=== PATIENT | female | born 1980 | race Caucasian/White ===

== ENCOUNTER → 2019-07-30 09:24 | Outpatient (BNVA) | payer BC, SELFPAY | PROVIDERS: Family Provider Nurse Practitioner Family; Visit Provider Nurse Practitioner Family | DX: J44.1 Chronic obstructive pulmonary disease with (acute) exacerbation (principal); J84.10 Pulmonary fibrosis, unspecified | CPT/HCPCS: 71046 ==

== ENCOUNTER 2019-07-30 11:12 | Observation (INO) | payer BC, SELFPAY ==
[2019-07-30] VITALS (12 sets, daily range): BP systolic 116–171; BP diastolic 65–84; PULSE 94–120; RESP 18–28; TEMP 36.5–37.2; O2SAT 92–99
--- NOTE | 2019-07-30 11:21 | ED_ITS ---
Entered by Francia Huynh, acting as scribe for Claudia Webster MD, [facility] [place] - SOB/Dyspnea General: Chief Complaint: Shortness of Breath/Dyspnea Stated Complaint: SOB Time Seen by Provider: 07/30/19 11:14 Source: patient and family Mode of arrival: EMS Limitations: no limitations History of Present Illness: HPI Narrative: 38 yo Female presents to ED with complaint of shortness of breath. Pt states that she has a history of asthma and COPD. Pt states that she is a 1 pack per day smoker. Pt states that her difficulty breathing started yesterday but worsened today. Pt was at the doctor's office and given a shot of solumedrol. Per EMS, patient was given 2 breathing treatments prior to her arrival to the ED. MD elicited complaint: shortness of breath Pertinent past history: COPD and asthma Onset (ago): day(s) Timing: progressively worsening Exacerbating factors: exertion, movement and coughing Relieving factors: oxygen and bronchodilators Known history of: COPD and asthma Associated symptoms: Reports chest congestion and cough; Deny abdominal pain, chest pain, fever(s), nausea, palpitations, polydipsia, polyuria or vomiting Treatment prior to arrival: oxygen and bronchodilator Related Data: Home oxygen amount: none Review of Systems General: Reports: 10 or more systems reviewed and unremarkable except in HPI and below Const: Denies: fever, chills or body aches Eyes: Denies: change in vision or blurry vision ENMT: Denies: throat pain, enlarged tonsils, painful swallowing, hoarseness, mouth pain or swelling of lips/tongue Card: Denies: chest pain, palpitations, irregular heart rhythm, edema or swelling of feet/ankles Resp: Reports: shortness of breath, productive cough, wheezing and chest congestion GI: Denies: abdominal pain, nausea or vomiting : Denies: flank pain, difficulty urinating, painful urination, urinary frequency, urinary urgency or urinary hesitancy Musc: Denies: neck pain, back pain or extremity swelling Skin/Breast: Denies: rash, itching or redness Neuro: Denies: headache, numbness in extremities or weakness in extremities Endo: Denies: excessive urination, excessive thirst or tired all the time [facility] ED PFSH: Medical History (Updated 07/30/19 @ 19:01 by Claudia Webster MD, [facility] [place]) Asthma COPD with exacerbation Patient has history of COPD and had intermittent exacerbations. She has seen a outsole caser in [place] and was recently referred to [facility] [place] Pulmonology and evaluate by Dr. Crandall. Patient is using daily inhalers. Patient continues to smoke. Surgical History (Updated 07/30/19 @ 16:20 by Alyssa Urbina DO) History of 2 sections History of breast biopsy History of cholecystectomy History of hemorrhoidectomy History of hysterectomy History of tubal ligation Family History (Updated 07/30/19 @ 16:20 by Alyssa Urbina DO) Father Dementia Social History Smoking and tobacco status: current every day smoker Second hand smoke exposure: No Smoking risk assessment/counseling performed?: No Alcohol intake: never Desire information about alcohol rehabilitation?: No Counseling given: No Desire information about substance/drug rehabilitation?: No Counseling given: No Physical Exam Const: COMMON NORMALS: no apparent distress, average body habitus, oriented x3, no limitations, healthy appearing, alert and well nourished HENMT: COMMON NORMALS: normocephalic, head/scalp atraumatic and moist oral mucous membranes HEAD & SCALP: normocephalic and atraumatic Eye: COMMON NORMALS: PERRL, EOMs intact bilaterally, conjunctivae normal and no scleral icterus CONJUNCTIVA: Yes conjunctivae normal PUPIL: Yes PERRL Neck/C-Spine: COMMON NORMALS: full ROM, supple, no meningeal signs, no JVD and no carotid bruits Chest: COMMONS NORMALS: inspection of chest normal and palpation of chest normal Resp: COMMON NORMALS: no retractions and percussion normal EFFORT & INSPECTION: Yes tachypneic, Yes respiratory distress, Yes pursed lip breathing and Yes uses accessory muscles AUSCULTATION: wheezes expiratory wheezes, inspiratory wheezes and throughout and diminished lung sounds PERCUSSION: percussion normal Cardio: COMMON NORMALS: no JVD, regular rate, regular rhythm, S1 normal heart sound, S2 normal heart sound, no gallops, no clicks, no murmurs, no rub and peripheral pulses 2+ throughout RATE: regular rate RHYTHM: regular rhythm HEART SOUNDS: S1 normal and S2 normal PERIPHERAL PULSES: pulses 2+ throughout GI: COMMON NORMALS: normal to inspection, nondistended, normoactive bowel sounds, soft to palpation, non-tender, no hepatosplenomegaly, no masses and no bruits PALPATION: Yes soft and Yes no hepatosplenomegaly : COMMON NORMALS: Yes no CVA tenderness BLADDER/KIDNEY EXAM: Yes no CVA tenderness Back/Pelvis: COMMON NORMALS: no CVA tenderness Extremity: COMMON NORMALS: normal to inspection, full ROM, normal capillary refill, no calf tenderness and no pedal edema Neuro: COMMON NORMALS: oriented x3 SENSORIUM/ORIENTATION: Yes alert MENINGEAL SIGNS: Yes no meningeal signs Skin: COMMON NORMALS: no rashes or lesions noted, no wounds, skin turgor normal, no jaundice, no petechiae and no mottling GENERAL SKIN EXAM: no rashes or lesions noted and turgor normal Course Reevaluation(s): Reevaluation #1: Patient feels much improved following the 10 mg albuterol nebulizer treatment. On examination she is still wheezing throughout however there is much improved air movement. Her lungs are still tight. Discussed treatment options with her including admitting which is my recommendation, versus outpatient care. Patient opted to be admitted to the hospital. Time: 12:00 Consultations: Consultation #1: Dr. Urbina, hospitalist. She kindly accepted the patient to her service. Vital Signs: Vital signs: Vital Signs Temperature 97.8 F 07/30/19 15:20 Pulse Rate 104 H 07/30/19 15:21 Respiratory Rate 20 H 07/30/19 15:21 Blood Pressure 122/68 07/30/19 15:20 Pulse Oximetry 95 07/30/19 15:21 MDM - SOB/Dyspnea MDM Narrative: Medical decision making narrative: Patient who presented to the emergency department in respiratory distress from a COPD exacerbation. She had received 125 mg of Solu-Medrol, 16 mg of dexamethasone, 2 albuterol breathing treatments, and 1 DuoNeb treatment prior to arrival in the emergency department. In the emergency department she received 10 mg of nebulized albuterol following which obtain much improvement. She was still however with significant distress. She is therefore admitted to the hospital for pulmonary toilet and further work-up. Lab Data: Labs: Lab Results 07/30/19 07/30/19 07/30/19 Range/Units 11:35 11:35 11:35 WBC 18.0 H (4.0-10.0) 10^3/ uL RBC 5.12 (4.1-5.3) 10^6/u L Hgb 15.3 (11.5-15.3) g/dL Hct 45.9 (37.0-47.0) % MCV 89.6 (81-99) fL MCH 29.9 (28.0-34.0) pg MCHC 33.3 (30.0-36.0) g/dL RDW 12.7 (12.1-15.1) % Plt Count 258 (130-400) 10^3/c mm MPV 10.6 H (7.4-10.4) fL Neut % (Auto) 78.8 % Lymph % (Auto) 14.0 % Mora % (Auto) 5.7 % Eos % (Auto) 0.6 % Baso % (Auto) 0.3 % Neut # (Auto) 14.2 H (1.8-7.7) 10^3/u L Lymph # (Auto) 2.5 (0.8-4.8) 10^3/u L Mora # (Auto) 1.0 H (0.2-0.9) 10^3/u L Eos # (Auto) 0.1 (0.0-0.8) 10^3/u L Baso # (Auto) 0.1 (0.0-0.1) 10^3/u L Nucleated RBC % (a uto) 0 % Nucleated RBCs # 0.0 /100WBC D-Dimer 0.44 (0-0.59) ug/mIFE U Specimen Type Sample Site ABG pH (7.35-7.45) ABG pCO2 (35-45) mmHg ABG pO2 (80.0-100.0) mmH g ABG HCO3 (22-26) mmol/L ABG Base Excess (-2.0-2.0) mmol/ L Tristen Test Hematocrit (37-47) % O2 Delivery Device O2 Liters/Min % FiO2 % Product Safety And Standards Engineer ID Sodium 139 (136-145) mmol/L Potassium 3.8 (3.5-5.1) mmol/L Chloride 101 (98-107) mmol/L Carbon Dioxide 23 (22-29) mmol/L Anion Gap 18.8 (5-19) BUN 9 (6-20) mg/dL Creatinine 0.8 (0.5-0.9) mg/dL GFR Calculation 79.9 L (90-130) mL/min Glucose 122 H (65-115) mg/dL Lactate (0.5-2.2) mmol/L Calcium 9.4 (8.5-10.5) mg/dL Total Bilirubin 0.4 (0.15-1.2) mg/dL AST 30 (0-32) U/L ALT 31 (0-33) U/L Alkaline Phosphata se 88 (35-105) IU/L C-Reactive Protein 15.3 H (0.0-4.9) mg/L Total Protein 7.8 (6.6-8.7) g/dL Albumin 4.3 (3.5-5.2) g/dL Globulin 3.5 (1.3-4.6) g/dL Influenza Type A A g (Negative) POC Influenza B Ag (Negative) 07/30/19 07/30/19 07/30/19 Range/Units 11:35 11:41 11:51 WBC (4.0-10.0) 10^3/ uL RBC (4.1-5.3) 10^6/u L Hgb (11.5-15.3) g/dL Hct (37.0-47.0) % MCV (81-99) fL MCH (28.0-34.0) pg MCHC (30.0-36.0) g/dL RDW (12.1-15.1) % Plt Count (130-400) 10^3/c mm MPV (7.4-10.4) fL Neut % (Auto) % Lymph % (Auto) % Mora % (Auto) % Eos % (Auto) % Baso % (Auto) % Neut # (Auto) (1.8-7.7) 10^3/u L Lymph # (Auto) (0.8-4.8) 10^3/u L Mora # (Auto) (0.2-0.9) 10^3/u L Eos # (Auto) (0.0-0.8) 10^3/u L Baso # (Auto) (0.0-0.1) 10^3/u L Nucleated RBC % (a uto) % Nucleated RBCs # /100WBC D-Dimer (0-0.59) ug/mIFE U Specimen Type Arterial Sample Site Brachial, left ABG pH 7.47 H (7.35-7.45) ABG pCO2 25.3 L (35-45) mmHg ABG pO2 86.8 (80.0-100.0) mmH g ABG HCO3 18.5 L (22-26) mmol/L ABG Base Excess -3.2 L (-2.0-2.0) mmol/ L Tristen Test Pos Hematocrit 48.6 H (37-47) % O2 Delivery Device Nc O2 Liters/Min 2.0 % FiO2 28.0 % Product Safety And Standards Engineer ID cak Sodium (136-145) mmol/L Potassium (3.5-5.1) mmol/L Chloride (98-107) mmol/L Carbon Dioxide (22-29) mmol/L Anion Gap (5-19) BUN (6-20) mg/dL Creatinine (0.5-0.9) mg/dL GFR Calculation (90-130) mL/min Glucose (65-115) mg/dL Lactate 4.5 H* (0.5-2.2) mmol/L Calcium (8.5-10.5) mg/dL Total Bilirubin (0.15-1.2) mg/dL AST (0-32) U/L ALT (0-33) U/L Alkaline Phosphata se (35-105) IU/L C-Reactive Protein (0.0-4.9) mg/L Total Protein (6.6-8.7) g/dL Albumin (3.5-5.2) g/dL Globulin (1.3-4.6) g/dL Influenza Type A A g Negative (Negative) POC Influenza B Ag Negative (Negative) Imaging Data^: CXR: Radiologist's impression: [address] [address] XRay Report Signed Patient: Dalila Long #: [id number] : 1980Acct#:[id number] Age/Sex: 38 / FADM Date: 07/30/19 Loc: WINRoom/Bed: Attending Dr: D J Gross CANCER PROGRAM DIRECTOR Ordering Provider/Ordering MD: Pipo Donato NP Date of Service: 07/30/19 Procedure(s): XR chest 2V* 23457 Accession Number(s): [id number] Report Number: [id number] WS: [id number] XR chest 2V* 92030 REASON FOR EXAM: shortness of breath FINDINGS: Calcified granulomas are noted in the right hilum and right lower lung. The lung bentley are well aerated. No pneumonia, pleural effusion, pulmonary edema, or mass effect. The hilum and apices are normal. No osseous abnormalities. XR/XR chest 2V* 02378 IMPRESSION: Negative chest for active pathology. Calcified granulomas right hilum right lower lung all benign in appearance. Dictated By:Ran Mlies DO Signed By:Ran Miles DOSigned Date/Time:07/30/19939 DD/ 8 Discharge Plan Discharge Patient Disposition: Placed in Observation Admit Provider: Alyssa Urbina Clinical Impression: COPD with exacerbation, Respiratory distress Interventions: ED Discharge Assessment Last Done: 07/30/19 13:35 Discharge Date/Time: 07/30/19 13:47 Coding Level of Care Code ED Neon Sign Erector for Chg Fwd Exam Comprehensive The documentation recorded by the Lino franklin Carmen, accurately reflects the service I personally performed and the decisions made by Eleanor murray Adegoke I, MD, [facility] [place] Jul 30, 2019 11:12
[2019-07-30 11:43] LABS: Basophils # 0.1 10^3/uL (0.0-0.1); Basophils % 0.3 %; Eosinophils # 0.1 10^3/uL (0.0-0.8); Eosinophils % 0.6 %; Hematocrit 45.9 % (37.0-47.0); Hemoglobin 15.3 g/dL (11.5-15.3); Lymphocytes # 2.5 10^3/uL (0.8-4.8); Mean Corpuscular HGB Conc 33.3 g/dL (30.0-36.0); Mean Corpuscular Hemoglobin 29.9 pg (28.0-34.0); Mean Corpuscular Volume 89.6 fL (81-99); Mean Platelet Volume 10.6 fL (7.4-10.4); Monocytes % 5.7 %; Neutrophils # 14.2 10^3/uL (1.8-7.7); Neutrophils % 78.8 %; Nucleated Red Blood Cells % 0 %; Platelet Count 258 10^3/cmm (130-400); Red Blood Count 5.12 10^6/uL (4.1-5.3); Red Cell Distribution Width 12.7 % (12.1-15.1)
[2019-07-30 11:59] LABS: Alanine Aminotransferase 31 U/L (0-33); Albumin Level 4.3 g/dL (3.5-5.2); Alkaline Phosphatase 88 IU/L (35-105); Anion Gap 18.8 (5-19); Aspartate Amino Transferase 30 U/L (0-32); Blood Urea Nitrogen 9 mg/dL (6-20); C Reactive Protein 15.3 mg/L (0.0-4.9); Calcium 9.4 mg/dL (8.5-10.5); Carbon Dioxide 23 mmol/L (22-29); Chloride 101 mmol/L (98-107); Globulin 3.5 g/dL (1.3-4.6); Glomerular Filtration Rate 79.9 mL/min (90-130); Glucose 122 mg/dL (65-115); Potassium 3.8 mmol/L (3.5-5.1); Sodium 139 mmol/L (136-145); Total Bilirubin 0.4 mg/dL (0.15-1.2); Total Protein 7.8 g/dL (6.6-8.7)
[2019-07-30] MEDS: sodium chloride 0.9% 1,000 ML 999 ML IV (12:00)
[2019-07-30 12:02] LABS: ABG PCO2 25.3 mmHg (35-45); ABG PH Result 7.47 (7.35-7.45); Arterial Blood Gas Hematocrit 48.6 % (37-47); Base Excess ABG -3.2 mmol/L (-2.0-2.0); Blood Gas Allen Test Pos; Blood Gas Sample Site Brachial, left; Blood Gas Sample Type Arterial; HCO3 ABG 18.5 mmol/L (22-26); Oxygen Device NC; PO2 ABG 86.8 mmHg (80.0-100.0)
[2019-07-30 12:05] LABS: Lactate (Lactic Acid level) 4.5 mmol/L (0.5-2.2)
[2019-07-30 12:06] LABS: D Dimer 0.44 ug/mIFEU (0-0.59)
--- NOTE | 2019-07-30 12:07 | PC.NURSE ---
Lactate 4.5
[2019-07-30 12:17] LABS: Influenza A by IFA Negative (Negative); Influenza B by IFA Negative (Negative)
[2019-07-30] MEDS: levofloxacin-dextrose 5 % 750 MG/150 ML PREMIX 150 MG IV (12:28)
[2019-07-30] MEDS: enoxaparin 40 mg/0.4 mL Syringe SUBCUT (14:18)
[2019-07-30] MEDS: ipratropium-albuterol 3 mL Neb INHALATION ×3 (15:15→23:50)
--- NOTE | 2019-07-30 16:18 | PM.HP ---
Providers/Chief Complaint Admitting Physician: Alyssa Urbina DO Chief Complaint: SOB History of Present Illness Dalila Long is a 38 year old female that presented to the emergency department today for shortness of breath. She stated that this morning she began having sudden onset of increased cough and shortness of breath. She stated that she has asthma and COPD and continues to smoke has had this frequent times in the past. She stated that she used her home albuterol and then used her home trilogy inhaler but continued to have worsening symptoms therefore went to the clinic. In the clinic she is reported she cannot remember much but she remembers being sent to the ER for further evaluation due to the severity of her symptoms. She was seen and evaluated in the emergency department noted to have concern for COPD and asthma exacerbation and admitted for further evaluation and treatment. At time of my exam patient reports that she is feeling somewhat better from admission she denies any chest pain, no nausea or vomiting or abdominal pain Review of Systems Const: Denies: fever or chills Eyes: Denies: change in vision ENMT: Denies: nasal congestion Card: Denies: chest pain, palpitations or edema Resp: Reports: shortness of breath; Denies: productive cough or coughing up blood GI: Denies: abdominal pain, nausea, vomiting, diarrhea, constipation, blood in stool or black tarry stool : Denies: painful urination or blood in urine Musc: Denies: extremity pain or muscle cramps Skin/Breast: Denies: rash or new lesion Neuro: Denies: headache or dizziness Psych: Denies: anxiety or depression Endo: Denies: excessive urination or hot flashes Kenneth/Lymph: Denies: easy bruising or easy bleeding Medications/Allergies Home Medications Medication Instructions Recorded Confirmed Last Taken Type sclscsnfgqt-uezbdycap-hrmrzjhr 1 inh INHALATION DAILY 07/30/19 07/30/19 07/30/19 History [Trelegy Ellipta] ibuprofen 800 mg PO Q6H PRN 07/30/19 07/30/19 07/26/19 History prednisone 40 mg PO BID PRN 07/30/19 07/30/19 Unknown History Allergies Allergy/AdvReac Type Severity Reaction Status Date / Time No Known Allergies Allergy Verified 07/30/19 09:14 PFSH Acute PFSH: Medical History (Updated 07/30/19 @ 16:22 by Alyssa Urbina DO) Asthma COPD with exacerbation Patient has history of COPD and had intermittent exacerbations. She has seen a security delivery specialist in [place] and was recently referred to [facility] [place] Pulmonology and evaluate by Dr. Crandall. Patient is using daily inhalers. Patient continues to smoke. Surgical History (Updated 07/30/19 @ 16:20 by Alyssa Urbina DO) History of 2 sections History of breast biopsy History of cholecystectomy History of hemorrhoidectomy History of hysterectomy History of tubal ligation Family History (Updated 07/30/19 @ 16:20 by Alyssa Urbina DO) Father Dementia Social History Smoking and tobacco status: current every day smoker Second hand smoke exposure: No Smoking risk assessment/counseling performed?: No Alcohol intake: never Desire information about alcohol rehabilitation?: No Counseling given: No Desire information about substance/drug rehabilitation?: No Counseling given: No Vitals/I&O/Wt Last Vital Signs Temp 97.8 F 07/30/19 15:20 Pulse 104 H 07/30/19 15:21 Resp 20 H 07/30/19 15:21 BP 122/68 07/30/19 15:20 Pulse Ox 95 07/30/19 15:21 Weight last 48 hrs Weight 9.979 kg Physical Exam Const: COMMON NORMALS: oriented x3 and alert GENERAL APPEARANCE: cooperative ORIENTATION/CONSCIOUSNESS: Yes awake, Yes oriented to person, Yes oriented to place and Yes oriented to time HENMT: COMMON NORMALS: normocephalic and head/scalp atraumatic HEAD & SCALP: normocephalic and atraumatic Eye: COMMON NORMALS: PERRL PUPIL: Yes PERRL Neck/C-Spine: COMMON NORMALS: supple GENERAL: Yes normal visual inspection Resp: AUSCULTATION: no rhonchi and wheezes OTHER: Diffuse wheezing bilaterally Cardio: COMMON NORMALS: regular rhythm and no murmurs RATE: regular rate and tachycardic RHYTHM: regular rhythm GI: COMMON NORMALS: soft to palpation and non-tender INSPECTION: No abdominal distension AUSCULTATION: Yes normoactive bowel sounds PALPATION: Yes soft Extremity: COMMON NORMALS: no clubbing, cyanosis or edema and no calf tenderness Neuro: COMMON NORMALS: oriented x3, CN's II-XII intact bilaterally, moves all extremities and no focal motor deficits SENSORIUM/ORIENTATION: Yes alert, Yes oriented to person, Yes oriented to place and Yes oriented to time SPEECH: speech normal Psych: COMMON NORMALS: mental status grossly normal and cooperative Data : 07/30/19 11:35 07/30/19 11:35 Micro: Microbiology 07/30/19 11:35 Blood Culture - Preliminary Blood SPECIMEN COLLECTED 07/30/19 11:28 Blood Culture - Preliminary Blood SPECIMEN COLLECTED CXR: Radiologist's impression: IMPRESSION: Negative chest for active pathology. Calcified granulomas right hilum right lower lung all benign in appearance. A&P Assessment and plan (1) COPD with exacerbation: COPD with acute exacerbation Respiratory therapy to assess and treat Oxygen per protocol We will continue with prednisone and Levaquin Status: Acute Code(s): J44.1 - Chronic obstructive pulmonary disease with (acute) exacerbation (2) Asthma: Plan as above Status: Acute Code(s): J45.909 - Unspecified asthma, uncomplicated Additional A&P Information Tobacco abuse: Strongly encourage cessation Attestations Medical Necessity Statement*: Observation due to concern for COPD exacerbation, expected stay less than 2 midnights Coding Level of Care Code Acute Starch Dumper for Otto Quiroga Diagnoses COPD with exacerbation J44.1 Asthma J45.909
[2019-07-30] MEDS: doxycycline 100 mg Tablet PO (17:20)
[2019-07-30] MEDS: ALPRAZolam 0.25 mg Tablet PO (21:11)
[2019-07-31] VITALS (10 sets, daily range): BP systolic 127–156; BP diastolic 59–85; PULSE 81–114; RESP 18–26; TEMP 36.6–36.7; O2SAT 96–98
[2019-07-31] MEDS: acetaminophen 325 mg Tablet 650 MG PO (00:11)
--- NOTE | 2019-07-31 00:12 | PC.PHAR ---
Levaquin dosage is adjusted from 750mg P.O. daily to 500mg P.O. every 48 hours after initial 750mg dose due to creatinine clearance of 14.87.
[2019-07-31] MEDS: ipratropium-albuterol 3 mL Neb INHALATION ×3 (03:52→08:02)
--- NOTE | 2019-07-31 04:15 | PC.NURSE ---
AMA Request Pt was requesting to leave AMA, this nurse spoke with Dr. Napier and pt's elizabet. Pt's fiance concerned about how far she lived out of town and if she had another episode she would be without oxygen for a while. This nurse spoke with pt again and told her fiance's concerns and informed her of the risks of leaving AMA. Pt decided she would stay for the night and requested for something to help her sleep.
[2019-07-31 06:13] LABS: Basophils % 0.1 %; Hematocrit 43.3 % (37.0-47.0); Hemoglobin 14.1 g/dL (11.5-15.3); Lymphocytes # 1.7 10^3/uL (0.8-4.8); Lymphocytes % 10.8 %; Mean Corpuscular HGB Conc 32.6 g/dL (30.0-36.0); Mean Corpuscular Hemoglobin 30.4 pg (28.0-34.0); Mean Corpuscular Volume 93.3 fL (81-99); Mean Platelet Volume 10.7 fL (7.4-10.4); Monocytes # 1.3 10^3/uL (0.2-0.9); Monocytes % 8.4 %; Neutrophils # 12.7 10^3/uL (1.8-7.7); Neutrophils % 80.3 %; Nucleated Red Blood Cells % 0 %; Platelet Count 198 10^3/cmm (130-400); Red Blood Count 4.64 10^6/uL (4.1-5.3); White Blood Count 15.9 10^3/uL (4.0-10.0)
[2019-07-31 06:34] LABS: Blood Urea Nitrogen 10 mg/dL (6-20); Calcium 9.4 mg/dL (8.5-10.5); Carbon Dioxide 21 mmol/L (22-29); Chloride 104 mmol/L (98-107); Creatinine Clr Calc Pharmacy 152.2311; Glomerular Filtration Rate 111.3 mL/min (90-130); Glucose 190 mg/dL (65-115); Osmolality Calculated 289 mOsm/kg (285-295); Sodium 139 mmol/L (136-145)
--- NOTE | 2019-07-31 08:48 | P.DS_ITS ---
Discharge Providers Date of Admission: 07/30/19 12:50 Date of Discharge: July 31, 2019 Attending Provider at Admission: Alyssa Urbina DO Attending Provider at Discharge: Alyssa Urbina DO Primary Care Provider: RUBIO donato Diagnoses at Discharge Discharge Diagnosis (1) COPD with exacerbation: Status: Acute Problem details: Patient has history of COPD and had intermittent exacerbations. She has seen a warehouse hand in [place] and was recently referred to [facility] [place] Pulmonology and evaluate by Dr. Crandall. Patient is using daily inhalers. Patient continues to smoke. Discharge to home with Levaquin and prednisone Patient has plenty of nebulizer solution at home, denies needing a refill Discussed with patient greater than 5 minutes on tobacco cessation and encouraged tobacco cessation, prescription for nicotine patch provided recommended follow-up with primary care provider in 3 to 5 days and follow-up with in 3 to 4 months (2) Asthma: Status: Acute Problem details: Plan as above Reason for Visit Reason for Visit: Reason For Visit: SOB Hospital Course Hospital Course: Patient was seen and evaluated in the emergency department noted to have concern for acute COPD and asthma exacerbation and admitted for further evaluation and treatment. She was given prednisone and Levaquin and she continued to improve. On date of discharge she was awake in bed denied any chest pain, stated that her breathing was feeling much better today. Discussed with patient the need for tobacco cessation and she verbalized understanding. She reported that she felt ready to discharge to home, discussed the need close follow-up with primary care provider and with warehouse hand. Patient verbalized understanding and agreed with plan. Discharge Summary: Discharge to home with self-care Follow-up with primary care provider in 3 to 5 days Follow-up with Dr. Crandall, warehouse hand in 3 to 4 months Physical Exam Const: COMMON NORMALS: oriented x3 and alert GENERAL APPEARANCE: cooperative ORIENTATION/CONSCIOUSNESS: Yes awake, Yes oriented to person, Yes oriented to place and Yes oriented to time HENMT: COMMON NORMALS: normocephalic and head/scalp atraumatic HEAD & SCALP: normocephalic and atraumatic Eye: COMMON NORMALS: PERRL PUPIL: Yes PERRL Neck/C-Spine: COMMON NORMALS: supple GENERAL: Yes normal visual inspection Resp: AUSCULTATION: no rhonchi and wheezes OTHER: End expiratory wheezing bilaterally Cardio: COMMON NORMALS: regular rhythm and no murmurs RATE: tachycardic RHYTHM: regular rhythm GI: COMMON NORMALS: soft to palpation and non-tender INSPECTION: No abdominal distension AUSCULTATION: Yes normoactive bowel sounds PALPATION: Yes soft Extremity: COMMON NORMALS: no clubbing, cyanosis or edema and no calf tenderness Neuro: COMMON NORMALS: oriented x3, CN's II-XII intact bilaterally, moves all extremities and no focal motor deficits SENSORIUM/ORIENTATION: Yes alert, Yes oriented to person, Yes oriented to place and Yes oriented to time SPEECH: speech normal Psych: COMMON NORMALS: mental status grossly normal and cooperative Discharge Data Data Completed and Pending: Pending at discharge Category Date Time Status Blood Culture Sta t Lab 07/30/19 11:35 Results Labs from last 24 hours 07/31/19 07/31/19 07/30/19 06:02 06:02 11:51 WBC 15.9 H RBC 4.64 Hgb 14.1 Hct 43.3 MCV 93.3 MCH 30.4 MCHC 32.6 RDW 13.0 Plt Count 198 MPV 10.7 H Neut % (Auto) 80.3 Lymph % (Auto) 10.8 Webster % (Auto) 8.4 Eos % (Auto) 0.0 Baso % (Auto) 0.1 Neut # (Auto) 12.7 H Lymph # (Auto) 1.7 Webster # (Auto) 1.3 H Eos # (Auto) 0.0 Baso # (Auto) 0.0 Nucleated RBC % (a uto) 0 Nucleated RBCs # 0.0 D-Dimer Specimen Type Arterial Sample Site Brachial, left ABG pH 7.47 H ABG pCO2 25.3 L ABG pO2 86.8 ABG HCO3 18.5 L ABG Base Excess -3.2 L Tristen Test Pos Hematocrit 48.6 H O2 Delivery Device Nc O2 Liters/Min 2.0 FiO2 28.0 Filler Block Inserter Remover ID cak Sodium 139 Potassium 4.0 Chloride 104 Carbon Dioxide 21 L Anion Gap 18.0 BUN 10 Creatinine 0.6 GFR Calculation 111.3 Glucose 190 H Calculated Osmolal ity 289 Lactate Calcium 9.4 Total Bilirubin AST ALT Alkaline Phosphata se C-Reactive Protein Total Protein Albumin Globulin Influenza Type A A g POC Influenza B Ag 07/30/19 07/30/19 07/30/19 11:41 11:35 11:35 WBC RBC Hgb Hct MCV MCH MCHC RDW Plt Count MPV Neut % (Auto) Lymph % (Auto) Webster % (Auto) Eos % (Auto) Baso % (Auto) Neut # (Auto) Lymph # (Auto) Webster # (Auto) Eos # (Auto) Baso # (Auto) Nucleated RBC % (a uto) Nucleated RBCs # D-Dimer 0.44 Specimen Type Sample Site ABG pH ABG pCO2 ABG pO2 ABG HCO3 ABG Base Excess Tristen Test Hematocrit O2 Delivery Device O2 Liters/Min FiO2 Filler Block Inserter Remover ID Sodium Potassium Chloride Carbon Dioxide Anion Gap BUN Creatinine GFR Calculation Glucose Calculated Osmolal ity Lactate 4.5 H* Calcium Total Bilirubin AST ALT Alkaline Phosphata se C-Reactive Protein Total Protein Albumin Globulin Influenza Type A A g Negative POC Influenza B Ag Negative 07/30/19 07/30/19 11:35 11:35 WBC 18.0 H RBC 5.12 Hgb 15.3 Hct 45.9 MCV 89.6 MCH 29.9 MCHC 33.3 RDW 12.7 Plt Count 258 MPV 10.6 H Neut % (Auto) 78.8 Lymph % (Auto) 14.0 Webster % (Auto) 5.7 Eos % (Auto) 0.6 Baso % (Auto) 0.3 Neut # (Auto) 14.2 H Lymph # (Auto) 2.5 Webster # (Auto) 1.0 H Eos # (Auto) 0.1 Baso # (Auto) 0.1 Nucleated RBC % (a uto) 0 Nucleated RBCs # 0.0 D-Dimer Specimen Type Sample Site ABG pH ABG pCO2 ABG pO2 ABG HCO3 ABG Base Excess Tristen Test Hematocrit O2 Delivery Device O2 Liters/Min FiO2 Filler Block Inserter Remover ID Sodium 139 Potassium 3.8 Chloride 101 Carbon Dioxide 23 Anion Gap 18.8 BUN 9 Creatinine 0.8 GFR Calculation 79.9 L Glucose 122 H Calculated Osmolal ity Lactate Calcium 9.4 Total Bilirubin 0.4 AST 30 ALT 31 Alkaline Phosphata se 88 C-Reactive Protein 15.3 H Total Protein 7.8 Albumin 4.3 Globulin 3.5 Influenza Type A A g POC Influenza B Ag Vitals: Last Vital Signs Temp 97.8 F 07/31/19 07:37 Pulse 105 H 07/31/19 08:08 Resp 18 07/31/19 08:02 BP 147/65 07/31/19 07:37 Pulse Ox 98 07/31/19 08:02 Discharge Plan Discharge Patient Disposition: Home, Self-Care Condition: Stable Prescriptions: New nicotine 21 mg/24 hr Patch 24 Hour 1 patch transdermal DAILY 7 Days Qty: 7 RF: 0 prednisone 20 mg tablet 40 mg PO DAILY 5 Days Qty: 10 RF: 0 levofloxacin [Levaquin] 750 mg tablet 750 mg PO DAILY 10 Days RF: 0 Continued ipratropium-albuterol 0.5 mg-3 mg(2.5 mg base)/3 mL solution for nebulization 3 ml inhalation QID RF: 0 albuterol sulfate 90 mcg/actuation HFA aerosol inhaler 2 puff INHALATION Q8H PRN (Reason: Shortness Of Breath) RF: 0 ibuprofen 800 mg Tablet 800 mg PO Q6H PRN (Reason: Pain) RF: 0 Trelegy Ellipta 100-62.5-25 mcg Blister With Device 1 inh INHALATION DAILY RF: 0 Discontinued prednisone 20 mg tablet 40 mg PO BID PRN (Reason: UNKNOWN) RF: 0 Discharge Orders: Discharge Order (Routine); Ordered 07/31/19 Ordered By: Alyssa Urbina Referrals: Pipo Donato FNP [Family Provider] - 1-3 days Saeid Crandall MD [Physician] - 2 months Discharge Diet: Advance as tolerated Discharge Activity: Increase activity as tolerated Activity Restrictions/Additional Instructions: Discharge to home Follow-up with primary care provider in 3 to 5 days Strongly encouraged tobacco cessation, nicotine patch prescribed Discharge to home with Levaquin and prednisone Call your physician or present to the ER for any acute illness or concern Discharge Attestations Time Spent in Discharge Care*: greater than 30 min Quality Metrics Clinical Quality Measures During this hospital stay, did patient experience: None Coding Level of Care Code 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
[2019-07-31] MEDS: doxycycline 100 mg Tablet PO (09:00)
[2019-07-31] MEDS: predniSONE 20 mg Tablet 40 MG PO (09:01)
== END 2019-07-31 10:20 | disposition home or self-care (01) ==
LOC: ER 11:33 → MEDSURG 13:33
PROVIDERS: Admitting Provider Family Medicine; Emergency Provider Family Medicine; Family Provider Nurse Practitioner Family; Visit Provider Family Medicine
DX: J44.1 Chronic obstructive pulmonary disease with (acute) exacerbation (principal); Z79.52 Long term (current) use of systemic steroids; F17.210 Nicotine dependence, cigarettes, uncomplicated
CPT/HCPCS: 12345; 36415; 36600; 80048; 80053; 82803; 83605; 85025; 85378; 86140; 87040; 87804; 94640; 94664; 96365; 96372; 99283; 99285; G0378; J1650; J1956; J7030; J7512; J7611

== ENCOUNTER → 2019-11-04 09:06 | Outpatient (BNVA) | payer BC, SELFPAY | PROVIDERS: Family Provider Nurse Practitioner Family; Visit Provider Nurse Practitioner Family | DX: E78.2 Mixed hyperlipidemia (principal); R73.09 Other abnormal glucose; I10 Essential (primary) hypertension; R53.83 Other fatigue; E55.9 Vitamin D deficiency, unspecified; B07.9 Viral wart, unspecified | CPT/HCPCS: 36415; 80053; 80061; 82306; 83036; 84443; 85025 ==

== ENCOUNTER → 2021-06-22 13:49 | Outpatient (BNVA) | payer OTHER, SELFPAY | PROVIDERS: Family Provider Nurse Practitioner Family; PCP Nurse Practitioner Family; Visit Provider Nurse Practitioner Family | DX: R73.09 Other abnormal glucose (principal); E66.9 Obesity, unspecified; Z68.38 Body mass index [BMI] 38.0-38.9, adult; E55.9 Vitamin D deficiency, unspecified; Z13.6 Encounter for screening for cardiovascular disorders; R53.83 Other fatigue; L02.412 Cutaneous abscess of left axilla; L02.416 Cutaneous abscess of left lower limb | CPT/HCPCS: 36415; 80053; 80061; 81003; 82306; 82728; 83036; 83550; 84443; 85025 ==

== ENCOUNTER → 2021-06-24 11:09 | Outpatient (BNVA) | payer OTHER, SELFPAY | PROVIDERS: Family Provider Nurse Practitioner Family; PCP Nurse Practitioner Family; Visit Provider Nurse Practitioner Family | DX: L02.412 Cutaneous abscess of left axilla (principal) | CPT/HCPCS: 87070; 87075; 87077; 87184; 87205 ==

== ENCOUNTER → 2021-07-07 10:59 | Outpatient (BNVA) | payer OTHER, SELFPAY | PROVIDERS: Family Provider Nurse Practitioner Family; PCP Nurse Practitioner Family; Visit Provider Nurse Practitioner Family | DX: Z20.822 Contact with and (suspected) exposure to COVID-19 (principal); J22 Unspecified acute lower respiratory infection | CPT/HCPCS: 87635 ==

== ENCOUNTER → 2021-12-28 11:49 | Outpatient (BNVA) | payer OTHER, SELFPAY | PROVIDERS: Family Provider Nurse Practitioner Family; PCP Nurse Practitioner; Visit Provider Nurse Practitioner Family | DX: R05.9 Cough, unspecified (principal); Z20.822 Contact with and (suspected) exposure to COVID-19 | CPT/HCPCS: 87633 ==

== ENCOUNTER → 2022-01-03 13:57 | Outpatient (BNVA) | payer OTHER, SELFPAY | PROVIDERS: Family Provider Nurse Practitioner Family; PCP Nurse Practitioner; Visit Provider Nurse Practitioner | DX: U07.1 COVID-19 (principal); J18.9 Pneumonia, unspecified organism | CPT/HCPCS: 71046 ==

== ENCOUNTER 2022-01-12 09:17 | Day surgery (SDC) | payer OTHER, SELFPAY ==
[2022-01-11 14:03] VITALS: BMI 39.4
[2022-01-12 09:57] VITALS: BP 119/87; PULSE 82; RESP 18; TEMP 36.3; O2SAT 96
[2022-01-12] MEDS: sodium chloride 0.9% 1,000 ML 30 ML IV (09:57)
--- NOTE | 2022-01-12 10:26 | ANES.PREANE2 ---
Pre-Anesthetic Assessment Height/Weight: Height 1.63 m Weight 104.326 kg Temp Pulse Resp BP Pulse Ox O2 Del Method 97.4 F L 82 18 119/87 96 01/12/22 09:57 01/12/22 09:57 01/12/22 09:57 01/12/22 09:57 01/12/22 09:57 01/12/22 09:57 Operation Date: 01/12/22 11:00 Proposed Procedures p [address] [place] [address] colon R19.7,R10.9,R14.0(Not Applicable) - DO simran Kilpatrick Colonoscopy(Not Applicable) - Chano Philip DO Familial anesthetic complications: none Was Beta Ermelinda taken within 24 hours: N/A Was Clonidine taken within 24 hours: N/A Last intake: Intake Last Liquid Date 01/11/22 Last Liquid Time 23:55 Last Solid Date 01/11/22 Last Solid Time 08:30 Social Tobacco and No alcohol Exam alert, oriented x 3 and regular rate & rhythm Airway Submandibular: within normal limits Cervical ROM: within normal limits Mallampati: Class II Dentition: chipped Pulmonary Asthma and Chronic Obstructive Pulmonary Disease h/o bronchospasm Metabolic Morbid Obesity Neuropsych Anxiety and Depression Anesthetic Plan ASA status: 3 Anesthesia: MAC Medications/Allergies Home Medications Medication Instructions Recorded Confirmed Last Taken Type ibuprofen 800 mg tablet 800 mg PO Q8H PRN Pain 30 days #90 02/24/21 01/11/22 Unknown Rx tabs albuterol sulfate 90 mcg/actuation 2 puff inhalation QID PRN 09/20/21 01/11/22 Unknown Rx aerosol inhaler (ProAir HFA) shortness of breath or wheezing 30 days #6.7 grams fluticasone fur. 100 mcg-umeclid 1 inh inhalation DAILY 30 days #60 09/20/21 01/11/22 Unknown Rx 62.5 mcg-vilant 25 mcg ea inhalat.powder (Trelegy Ellipta) ipratropium 0.5 mg-albuterol 3 mg 3 ml inhalation QID PRN shortness 09/20/21 01/11/22 Unknown Rx (2.5 mg base)/3 mL nebulization of breath or wheezing 30 days #90 soln mL hydrocodone 5 mg-acetaminophen 325 1 tab PO Q8H PRN pain 5 days #14 11/04/21 01/11/22 Unknown Rx mg tablet tabs ondansetron HCl 4 mg tablet 4 mg PO Q8H PRN nausea and 12/30/21 01/11/22 Unknown Rx vomiting #20 tabs albuterol sulfate 2.5 mg (3 mL) inhalation QID PRN 01/03/22 01/11/22 Unknown Rx shortness of breath or wheezing #75 mL Allergies Allergy/AdvReac Type Severity Reaction Status Date / Time levofloxacin [From Levaquin] Allergy Severe RASH AND Verified 12/28/21 11:41 SWELLING Current Medications Generic Name Dose Route Start Last Admin Trade Name Freq PRN Reason Stop Dose Admin Sodium Chloride 1,000 mls @ 30 mls/hr 01/12/22 09:30 01/12/22 09:57 Sodium Chloride 0.9% IV 01/13/22 09:29 30 mls/hr .Q24H GERMAINE Administration PFSH Anesthesia Medical History Abscess of left axilla Abscess of left thigh Acute lower respiratory infection Anxiety and depression Asthma Bloating Cellulitis COPD (chronic obstructive pulmonary disease) COPD with exacerbation Decreased GFR Diarrhea Elevated hemoglobin A1c Fatigue Hypertension screen Left axillary pain Lower respiratory infection Metabolic syndrome Obesity Shingles Viral wart on finger Vitamin D deficiency Surgical History History of 2 sections History of breast biopsy History of cholecystectomy History of esophagogastroduodenoscopy (EGD) Age 21 History of hemorrhoidectomy History of hysterectomy History of tubal ligation Family History Father Dementia Social History Smoking and tobacco status: current every day smoker Second hand smoke exposure: No Smoking risk assessment/counseling performed?: No Alcohol intake: never Desire information about alcohol rehabilitation?: No Counseling given: No Desire information about substance/drug rehabilitation?: No Counseling given: No Data Anesthesia Cardiac Studies: No Data to Display
--- NOTE | 2022-01-12 11:13 | P.HP_ITS ---
Providers/Chief Complaint Primary Care Provider: Meeta Claros APN History of Present Illness Dalila Long is a 41 year old female who presents for EGD and colonoscopy as part of a work-up for abdominal pain, nausea, bloating and diarrhea. This is an updated H&P. Nothing is changed since last H&P. Review of Systems General: Reports: 10 or more systems reviewed and unremarkable except in HPI and below Medications/Allergies Home Medications Medication Instructions Recorded Confirmed Last Taken Type ibuprofen 800 mg tablet 800 mg PO Q8H PRN Pain 30 days #90 02/24/21 01/11/22 Unknown Rx tabs albuterol sulfate 90 mcg/actuation 2 puff inhalation QID PRN 09/20/21 01/11/22 Unknown Rx aerosol inhaler (ProAir HFA) shortness of breath or wheezing 30 days #6.7 grams fluticasone fur. 100 mcg-umeclid 1 inh inhalation DAILY 30 days #60 09/20/21 01/11/22 Unknown Rx 62.5 mcg-vilant 25 mcg ea inhalat.powder (Trelegy Ellipta) ipratropium 0.5 mg-albuterol 3 mg 3 ml inhalation QID PRN shortness 09/20/21 01/11/22 Unknown Rx (2.5 mg base)/3 mL nebulization of breath or wheezing 30 days #90 soln mL hydrocodone 5 mg-acetaminophen 325 1 tab PO Q8H PRN pain 5 days #14 11/04/21 01/11/22 Unknown Rx mg tablet tabs ondansetron HCl 4 mg tablet 4 mg PO Q8H PRN nausea and 12/30/21 01/11/22 Unknown Rx vomiting #20 tabs albuterol sulfate 2.5 mg (3 mL) inhalation QID PRN 01/03/22 01/11/22 Unknown Rx shortness of breath or wheezing #75 mL Allergies Allergy/AdvReac Type Severity Reaction Status Date / Time levofloxacin [From Levaquin] Allergy Severe RASH AND Verified 12/28/21 11:41 SWELLING PFSH Acute PFSH: Medical History (Updated 01/12/22 @ 11:15 by Chano Philip DO) Abscess of left axilla Abscess of left thigh Acute lower respiratory infection Anxiety and depression Asthma Bloating Cellulitis COPD (chronic obstructive pulmonary disease) COPD with exacerbation Decreased GFR Diarrhea Elevated hemoglobin A1c Fatigue Hypertension screen Left axillary pain Lower respiratory infection Metabolic syndrome Obesity Shingles Viral wart on finger Vitamin D deficiency Surgical History History of 2 sections History of breast biopsy History of cholecystectomy History of esophagogastroduodenoscopy (EGD) Age 21 History of hemorrhoidectomy History of hysterectomy History of tubal ligation Family History Father Dementia Social History Smoking and tobacco status: current every day smoker Second hand smoke exposure: No Smoking risk assessment/counseling performed?: No Alcohol intake: never Desire information about alcohol rehabilitation?: No Counseling given: No Desire information about substance/drug rehabilitation?: No Counseling given: No Vitals/I&O/Wt Last Vital Signs Temp 97.4 F L 01/12/22 09:57 Pulse 82 01/12/22 09:57 Resp 18 01/12/22 09:57 BP 119/87 01/12/22 09:57 Pulse Ox 96 01/12/22 09:57 O2 Del Method 01/12/22 09:57 Weight last 48 hrs Weight 230 lb Physical Exam Narrative: General : Patient is well developed , no acute distress, oriented x3 Head : Normal cephalic, a-traumatic. Ears : Pinnae and external canal are normal. Hearing is normal. Eyes : PERRLA, Sclera and injection are normal. No conjunctival discharge. Nose : Mucous membranes are without erythema. Throat : buccal mucosa is normal, gums are without significant recession or hypertrophy. Lungs : Equal chest rise bilaterally, no use of accessory muscles, trachea is midline. Cor : Rate and rhythm are normal. Abdomen : Soft, ND, NT, no g/r/m Extremities : No edema, no cyanosis or clubbing, dorsalis pedis pulses are present bilaterally, non-tender to palpation of calves. Upper extremities are normal bilaterally. Back : non-tender to palpation, no CVA tenderness. Neuro : CN II - XII intact, Upper and lower extremities have equal and full strength A&P Assessment and plan (1) Nausea: Status: Acute (2) Diarrhea: Status: Acute (3) Bloating: Status: Acute Plan EGD and colonoscopy with random biopsies The risks and benefits of the procedure, including bleeding, infection, intestinal perforation requiring surgery, missed lesion, or explained to the patient. He is understanding of the risks and wishes to proceed. 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
[2022-01-12 12:25] VITALS: BP 105/65; PULSE 76; RESP 16; TEMP 36.3; O2SAT 99
[2022-01-12 12:37] VITALS: BP 116/72; PULSE 71; RESP 18; O2SAT 99
--- NOTE | 2022-01-12 13:41 | ANE.PACU2 ---
Inpatient post-anesthesia follow up: Airway intact: Yes Vital signs: Temperature 97.3 F Pulse Rate 71 Respiratory Rate 18 Blood Pressure 116/72 Pulse Oximetry 99 Oxygen Delivery Me thod Room Air Oxygen Flow Rate Fraction of Inspir ed Oxygen Hydration adequate: Yes Nausea and vomiting: No Pain level: 1 Mental status: Baseline
== END 2022-01-12 12:50 | disposition home or self-care (01) ==
PROVIDERS: PCP Nurse Practitioner; Visit Provider Surgery
PROC: 0DJ08ZZ Inspection of Upper Intestinal Tract, Via Natural or Artificial Opening Endoscopic (ICD-10-PCS; CPT 43235; principal; 2022-01-12 11:00)
PROC: 0DJD8ZZ Inspection of Lower Intestinal Tract, Via Natural or Artificial Opening Endoscopic (ICD-10-PCS; CPT 45378; 2022-01-12 11:00)
DX: R19.7 Diarrhea, unspecified (principal); R10.9 Unspecified abdominal pain; R14.0 Abdominal distension (gaseous); K63.5 Polyp of colon; K29.50 Unspecified chronic gastritis without bleeding; B96.81 Helicobacter pylori [H. pylori] as the cause of diseases classified elsewhere; K20.90 Esophagitis, unspecified without bleeding; J44.9 Chronic obstructive pulmonary disease, unspecified; E66.01 Morbid (severe) obesity due to excess calories; Z68.39 Body mass index [BMI] 39.0-39.9, adult; F17.200 Nicotine dependence, unspecified, uncomplicated
CPT/HCPCS: 43239; 45380; 45385; 82274; 83630; 87493; 87506; 88305; J2704; J7030

== ENCOUNTER → 2022-08-09 08:18 | Outpatient (BNVA) | payer OTHER, SELFPAY | PROVIDERS: PCP Nurse Practitioner; Visit Provider Nurse Practitioner | DX: R53.1 Weakness (principal); Z79.899 Other long term (current) drug therapy | CPT/HCPCS: 80053; 80061; 83036; 84443; 85025 ==

== ENCOUNTER → 2022-12-05 08:10 | Outpatient (BNVA) | payer OTHER, MEDICAID, SELFPAY | PROVIDERS: PCP Nurse Practitioner; Visit Provider Nurse Practitioner | DX: N39.0 Urinary tract infection, site not specified (principal) | CPT/HCPCS: 81000 ==

== ENCOUNTER → 2023-01-23 16:21 | Outpatient (BNVA) | payer OTHER, MEDICAID, SELFPAY | PROVIDERS: PCP Nurse Practitioner; Visit Provider Nurse Practitioner | DX: R69 Illness, unspecified (principal); J44.9 Chronic obstructive pulmonary disease, unspecified | CPT/HCPCS: 71046; 85025; 87426 ==

== ENCOUNTER → 2023-07-25 08:51 | Outpatient (BNVA) | payer MEDICAID, SELFPAY | PROVIDERS: PCP Nurse Practitioner Family; Visit Provider Family Medicine | DX: J44.9 Chronic obstructive pulmonary disease, unspecified | CPT/HCPCS: 93005 ==

== ENCOUNTER → 2023-08-06 11:06 | Outpatient (BNVA) | payer MEDICAID, SELFPAY | PROVIDERS: PCP Nurse Practitioner Family; Visit Provider Nurse Practitioner Family | DX: J44.1 Chronic obstructive pulmonary disease with (acute) exacerbation (principal) | CPT/HCPCS: 71046 ==

== ENCOUNTER → 2023-08-10 08:24 | Outpatient (BNVA) | payer MEDICAID, SELFPAY | PROVIDERS: PCP Nurse Practitioner Family; Visit Provider Nurse Practitioner Family | DX: F41.9 Anxiety disorder, unspecified (principal); F32.9 Major depressive disorder, single episode, unspecified; E55.9 Vitamin D deficiency, unspecified; J44.9 Chronic obstructive pulmonary disease, unspecified; Z79.899 Other long term (current) drug therapy; Z13.6 Encounter for screening for cardiovascular disorders; R73.09 Other abnormal glucose; I10 Essential (primary) hypertension | CPT/HCPCS: 80053; 80061; 81003; 82306; 83036; 84443; 85025 ==

== ENCOUNTER → 2023-08-21 08:27 | Outpatient (BNVA) | payer MEDICAID, SELFPAY | PROVIDERS: PCP Nurse Practitioner Family; Visit Provider Nurse Practitioner Family | DX: R74.8 Abnormal levels of other serum enzymes (principal) | CPT/HCPCS: 80053 ==

== ENCOUNTER → 2023-08-30 11:41 | Outpatient (BNVA) | payer MEDICAID, SELFPAY | PROVIDERS: PCP Nurse Practitioner Family; Visit Provider Nurse Practitioner Family | DX: R19.7 Diarrhea, unspecified (principal) | CPT/HCPCS: 87177; 87209; 87328; 87329; 87338; 87493; G0328 ==

== ENCOUNTER → 2023-09-04 10:07 | Outpatient (BNVA) | payer MEDICAID, SELFPAY | PROVIDERS: PCP Nurse Practitioner Family; Visit Provider Nurse Practitioner Family | DX: K52.9 Noninfective gastroenteritis and colitis, unspecified (principal); F41.9 Anxiety disorder, unspecified; F32.9 Major depressive disorder, single episode, unspecified | CPT/HCPCS: 82784; 83516 ==

== ENCOUNTER → 2024-04-10 08:10 | Outpatient (BNVA) | payer MEDICAID, SELFPAY | PROVIDERS: PCP Nurse Practitioner Family; Visit Provider Nurse Practitioner Family | DX: J44.1 Chronic obstructive pulmonary disease with (acute) exacerbation (principal); M16.0 Bilateral primary osteoarthritis of hip; M25.852 Other specified joint disorders, left hip | CPT/HCPCS: 73502 ==

== ENCOUNTER → 2024-05-15 09:01 | Outpatient (BNVA) | payer MEDICAID, SELFPAY | PROVIDERS: PCP Nurse Practitioner Family; Visit Provider Specialist | DX: M25.552 Pain in left hip; M25.551 Pain in right hip; S73.192A Other sprain of left hip, initial encounter; W19.XXXA Unspecified fall, initial encounter | CPT/HCPCS: 73523 ==

== ENCOUNTER → 2024-08-06 09:36 | Outpatient (BNVA) | payer MEDICAID, SELFPAY | PROVIDERS: PCP Nurse Practitioner Family; Visit Provider Nurse Practitioner Family | DX: E66.9 Obesity, unspecified (principal); Z68.38 Body mass index [BMI] 38.0-38.9, adult; E55.9 Vitamin D deficiency, unspecified; J44.9 Chronic obstructive pulmonary disease, unspecified; J45.50 Severe persistent asthma, uncomplicated | CPT/HCPCS: 80053; 80061; 81003; 82306; 83036; 84443; 85025 ==

== ENCOUNTER → 2025-03-10 08:55 | Outpatient (BNVA) | payer MEDICAID, SELFPAY | PROVIDERS: PCP Nurse Practitioner Family; Visit Provider Nurse Practitioner Family | DX: W57.XXXA Bitten or stung by nonvenomous insect and other nonvenomous arthropods, initial encounter (principal); X58.XXXA Exposure to other specified factors, initial encounter | CPT/HCPCS: 86003; 86008; 86160; 86618; 86666; 86668; 86757 ==

== ENCOUNTER → 2025-05-15 14:44 | Outpatient (BNVA) | payer MEDICAID, SELFPAY | PROVIDERS: PCP Nurse Practitioner Family; Visit Provider Nurse Practitioner Family | DX: M50.30 Other cervical disc degeneration, unspecified cervical region (principal); G89.29 Other chronic pain; M41.9 Scoliosis, unspecified; M99.21 Subluxation stenosis of neural canal of cervical region; M25.512 Pain in left shoulder | CPT/HCPCS: 72052; 73030 ==